=== PATIENT | male | born 1960 | race Caucasian/White ===

== ENCOUNTER → 2020-12-04 | Outpatient (CLI) | payer OTHER ==
--- NOTE | 2020-12-04 18:07 | Diagnostic Imaging Report ---
INDICATION: History of kidney stones. Left flank pain. FINDINGS: KUB shows calcification overlying the lower pole of the left kidney measuring approximately 8 x 5 mm. No calcifications noted along the path of the ureter. There are calcifications bilaterally in the pelvis most likely representing phleboliths, though I could not completely exclude a small distal left ureteral stone near the bladder. There may be a small calcification overlying the upper pole of the right kidney. IMPRESSION: Bilateral nephrolithiasis. Phleboliths in the pelvis though could not completely exclude a small distal left ureteral stone. Dictated by: Dictated on workstation # [id number]
== END ==
LOC: RAD 13:19
PROVIDERS: ATTEND Urology
DX: N20.2 Calculus of kidney with calculus of ureter (principal)
CPT/HCPCS: 74018

== ENCOUNTER 2020-12-06 05:59 | Outpatient (CLI) | payer OTHER ==
[~2020-12-06] VITALS: Ht 175.3 cm; Wt 87.2 kg
[2020-12-07] MEDS ORDERED: DICL20GE TP (09:17)
[2020-12-07] MEDS ORDERED: CETI10TA17 PO (09:17)
[2020-12-07] MEDS ORDERED: ATOR10TA66 PO (09:17)
[2020-12-07] MEDS ORDERED: BUDE180A IH (09:17)
[2020-12-07] MEDS ORDERED: HYPR15DR6 OU (09:17)
[2020-12-07] MEDS ORDERED: MELO15TA39 PO (09:17)
[2020-12-07] MEDS ORDERED: RT-ALBUINH IH (09:17)
[2020-12-07] MEDS ORDERED: MONT10TA32 PO (09:17)
[2020-12-07] MEDS ORDERED: AMLO-251 PO (09:17)
[2020-12-07] MEDS ORDERED: LISI40TA9 PO (09:17)
[2020-12-07] MEDS ORDERED: OMG1KC PO (09:17)
[2020-12-07] MEDS ORDERED: HYDR25TA4 PO (09:17)
[2020-12-07] MEDS ORDERED: TMSL.4C PO (09:17)
== END 2020-12-08 12:11 | disposition home or self-care (01) ==
LOC: PREOP 05:59
PROVIDERS: ATTEND Urology
DX: Z01.818 Encounter for other preprocedural examination (principal)

== ENCOUNTER 2020-12-12 06:50 | Day surgery (SDC) | payer OTHER ==
[2020-12-12] VITALS (11 sets, daily range): BP systolic 116–147; BP diastolic 71–96
[~2020-12-12] VITALS: Ht 175.3 cm; Wt 87.2 kg
[~2020-12-12 06:50] MED LIST: AMLO-251 PO; ATOR10TA66 PO; BUDE180A IH; CETI10TA17 PO; DICL20GE TP; HYDR25TA4 PO; HYPR15DR6 OU; LISI40TA9 PO; MELO15TA39 PO; MONT10TA32 PO; OMG1KC PO; RT-ALBUINH IH; TMSL.4C PO
--- NOTE | 2020-12-12 07:11 | Progress Note-Pre Operative ---
Pre-Operative Progress Note H&P Reviewed The H&P was reviewed, patient examined and no changes noted. Date Seen by Provider: Dec 12, 2020 Time Seen by Provider: 07:11 Date H&P Reviewed: Dec 12, 2020 Time H&P Reviewed: 07:11 Pre-Operative Diagnosis: LT URETERAL AND RENAL STONES EPIFANIO NI MD Dec 12, 2020 07:11
[2020-12-12] MEDS ORDERED: cefTRIAXone 1,000 MG in WATER (STERILE) FOR INJECTION 10 ML IV ONE (07:15)
[2020-12-12] MEDS: LACTATED RINGERS 1,000 ML IV PRN ×2 (07:31→09:40)
--- NOTE | 2020-12-12 07:39 | Diagnostic Imaging Report ---
INDICATION: Preop assessment for lithotripsy. COMPARISON: 12/04/2020. FINDINGS AND IMPRESSION: 1. Stable 10 mm left renal stone. 2. Unchanged right-sided pelvic phleboliths. Dictated by: Dictated on workstation # [id number]
[2020-12-12] MEDS ORDERED: MIDAZOLAM 2 MG/2 ML (VERSED) VIAL IV ONE (07:45)
[2020-12-12] MEDS ORDERED: proPOfol 200 MG/20 ML (DIPRIVAN) VIAL IV ONE (08:10)
[2020-12-12] MEDS ORDERED: ONDANSETRON 4 MG/2 ML (SDV) Z0FRAN ONE (08:10)
[2020-12-12] MEDS ORDERED: LIDOCAINE PF 2% 5 ML (XYLOCAINE) VIAL ONE (08:10)
[2020-12-12] MEDS ORDERED: fentaNYL INJ 100 MCG/2 ML AMP ONE (08:11)
[2020-12-12] MEDS ORDERED: MIDAZOLAM 2 MG/2 ML (VERSED) VIAL ONE (08:23)
[2020-12-12] MEDS ORDERED: ROCURONIUM 10 MG/ML 5 ML SYRINGE IV ONE (09:02)
[2020-12-12] MEDS ORDERED: IOPAMIDOL 61% 30 ML (ISOVUE 300) VIAL URETERAL ONE (09:20)
[2020-12-12] MEDS ORDERED: KETOROLAC 30 MG/ML VIAL ONE (09:43)
[2020-12-12] MEDS ORDERED: FUROSEMIDE 40 MG/4 ML INJ (LASIX) ONE (09:43)
--- NOTE | 2020-12-12 09:45 | Progress Note-Post Operative ---
Post-Operative Progess Note Surgeon (s)/Airport Operations Duty Manager (s) Surgeon EPIFANIO NI MD Airport Operations Duty Manager: NONE Pre-Operative Diagnosis LT URETERAL AND RENAL STONES Post-Operative Diagnosis SAME Procedure & Operative Findings Date of Procedure 12/12/20 Procedure Performed/Findings LT URETEROSCOPY, RETROGRADE UROGRAM, AND LT ESWL Anesthesia Type GENERAL Estimated Blood Loss Estimated blood loss (mL): NONE Specimens/Packing Specimens Removed NONE Packing: NONE EPIFANIO NI MD Dec 12, 2020 09:45
--- NOTE | 2020-12-12 09:47 | Discharge Inst-Urology ---
Discharge Inst-Urology Reconcile Patient Problems Problems Reviewed?: Yes Final Diagnosis LT URETERAL AND RENAL STONES Patient Instructions/Follow Up Plan/Assessment/Instructions Please make appointment to been seen in office Monday 12/25, KUB prior to it. KUB on way home Post eswl instructions Increase oral fluids for 48 hours and then as needed. Diet and Activity as tolerated. If questions or concerns contact your physician Or seek help at emergency department. EPIFANIO NI MD Dec 12, 2020 09:47
[2020-12-12] MEDS ORDERED: NEOSTIGMINE 3 MG/3 ML VIAL ONE (10:02)
[2020-12-12] MEDS ORDERED: GLYCOPYRROLATE 0.2 MG/ML (ROBINUL) 2 ML VIAL ONE (10:02)
[2020-12-12] MEDS ORDERED: SEVOFLURANE (ULTANE) 15 ML INHAL SOLN ONE (10:13)
[2020-12-12] MEDS ORDERED: RT-ALBUTEROL SULF 2.5 MG/3 ML PRE-MIX VIAL ONE (10:21)
[2020-12-12] MEDS ORDERED: RT-ALBUTEROL SULF 2.5 MG/3 ML PRE-MIX VIAL INH ONE (10:30)
[2020-12-12] MEDS ORDERED: ONDANSETRON 4 MG/2 ML (SDV) Z0FRAN IVP PRN (10:30)
[2020-12-12] MEDS ORDERED: morphine INJ 10 MG/ML 1ML (SYR OR VIAL) IVP ONE (10:30)
[2020-12-12] MEDS ORDERED: MEPERIDINE (DEMEROL) INJ 50 MG/ML IVP ONE (10:30)
[2020-12-12] MEDS ORDERED: HYDROmorphone 2 MG/ML VIAL (DILAUDID) IV ONE (10:30)
--- NOTE | 2020-12-12 12:01 | Anesthesia-General Post-Op ---
General Patient Condition Mental Status/LOC: Same as Preop Cardiovascular: Satisfactory Nausea/Vomiting: Absent Respiratory: Satisfactory Pain: Controlled Complications: Absent Post Op Complications Complications None Follow Up Care/Instructions Patient Instructions None needed. Anesthesia/Patient Condition Patient Condition Patient is doing well, no complaints, stable vital signs, no apparent adverse anesthesia problems. No complications reported per nursing. IAN HUFF CRNA Dec 12, 2020 12:01
[2020-12-12] MEDS ORDERED: NITR-65 PO (12:34)
[2020-12-12] MEDS ORDERED: KETO10TA PO (12:34)
--- NOTE | 2020-12-12 12:51 | Diagnostic Imaging Report ---
EXAMINATION: Abdomen 1 view HISTORY: POST OP ESWL COMPARISON: 12/12/2020 FINDINGS: There is a moderate amount of gas and stool throughout the colon. Nonobstructive bowel gas pattern. Minimally decreased size of a 0.8 cm calculus overlying the left kidney. Stable calcifications within the pelvis. The lung bases are clear. The osseous structures are intact. IMPRESSION: Mildly decreased size of a 0.8 cm calculus overlying the left kidney. Dictated by: Dictated on workstation # [id number]
--- NOTE | 2020-12-12 23:14 | OPERATIVE REPORT ---
DATE OF SERVICE: 12/12/2020 PREOPERATIVE DIAGNOSES: Left distal ureteral and left renal stones. POSTOPERATIVE DIAGNOSES: Left distal ureteral and left renal stones. OPERATION PERFORMED: Left ureteroscopy, retrograde urogram and left ESWL. SURGEON: Cullen Ni MD ANESTHESIA: General. COMPLICATIONS: None. DESCRIPTION OF PROCEDURE: Under satisfactory general anesthesia, the patient in lithotomy position, genitalia were prepped and draped in the usual sterile fashion. Cystoscope was introduced under vision. The anterior urethra was normal. Prostate revealed some obstruction with a median bar and bladder neck obstruction. Bladder was entered, revealed trabeculations. The ureteric orifices displaced upward and laterally. No foreign body, bladder tumor or stone visualized. Using the foroblique lens, I dilated the left ureteral orifice intramural portion to accommodate a 6.9-Swedish semi-rigid ureteroscope, went all the way to the mid ureter up and down, did not visualize any stone. I backed up and injected contrast to perform retrograde urogram. There was no filling defect anywhere in the ureter that was looking thin and completely empties after withdrawing the ureteroscope. I removed the ureteroscope, reinserted the cystoscope to empty the bladder, then moved the patient to the ESWL table supine, the left renal stone was localized. Shocks were delivered at kV of 6, a total of 2500 shocks completely fragmented the stone. The patient received 40 mg of Lasix and 30 mg of Toradol IV at the end of the procedure. He tolerated the procedure and anesthesia well and was sent to recovery room in stable condition. Job ID: [id number] DocumentID: [id number] Dictated Date: 12/12/2020 10:06:57 Director Product Management Date: 12/12/2020 18:47:51 Dictated By: CULLEN NI MD [facility]
== END 2020-12-12 13:00 | disposition home or self-care (01) ==
LOC: SDC 06:50
PROVIDERS: ATTEND Urology
DX: N20.2 Calculus of kidney with calculus of ureter (principal); Z11.2 Encounter for screening for other bacterial diseases; E78.5 Hyperlipidemia, unspecified; J45.909 Unspecified asthma, uncomplicated; H91.90 Unspecified hearing loss, unspecified ear; N40.0 Benign prostatic hyperplasia without lower urinary tract symptoms; M19.90 Unspecified osteoarthritis, unspecified site; I10 Essential (primary) hypertension; Z88.5 Allergy status to narcotic agent; Z88.0 Allergy status to penicillin; Z88.8 Allergy status to other drugs, medicaments and biological substances; Z79.899 Other long term (current) drug therapy
CPT/HCPCS: 74018; 76000; 87081

== ENCOUNTER → 2020-12-25 | Outpatient (CLI) | payer OTHER ==
[~2020-12-25] MED LIST changes: +KETO10TA PO; +NITR-65 PO
--- NOTE | 2020-12-25 15:40 | Diagnostic Imaging Report ---
INDICATION: Left renal calculus. Status post ESWL. COMPARISON: 12/12/2020. FINDINGS: Single frontal radiographic view of the abdomen was obtained. Small bowel loops are nondistended. Pelvic phleboliths are identified on the right. Previously described left inferior pole calculus is now only faintly visualized. No other unexpected extraosseous calcifications or radiopaque foreign bodies are seen. Osseous structures show no acute abnormalities. IMPRESSION: 1. Previously described left inferior pole renal calculus is now only faintly visualized. This is likely on the basis of interval ESWL. 2. Nonobstructed small bowel gas pattern. Dictated by: Dictated on workstation # [id number]
== END ==
LOC: RAD 14:53
PROVIDERS: ATTEND Urology
DX: N20.2 Calculus of kidney with calculus of ureter (principal)
CPT/HCPCS: 74018

== ENCOUNTER → 2021-01-08 | Outpatient (CLI) | payer OTHER ==
--- NOTE | 2021-01-08 14:00 | Diagnostic Imaging Report ---
INDICATION: Status post ESWL. COMPARISON: 12/25/2020. FINDINGS: A single frontal radiographic view of the abdomen was obtained. The previously described calculus overlying the inferior pole of the left kidney can no longer be identified. There is suggestion of subtle extraosseous calcifications projecting over the inferior pole of the right kidney which may be on the basis of nephrolithiasis. There is no prior CT available for comparison. No unexpected radiopaque foreign bodies are seen. The small bowel loops are nondistended. There is no large collection of free intraperitoneal air. The osseous structures show no acute abnormalities. IMPRESSION: 1. Interval resolution of the previously described left-sided renal calculus. 2. Probable faint right-sided nonobstructive renal calculi. Dictated by: Dictated on workstation # [id number]
== END ==
LOC: RAD 12:23
PROVIDERS: ATTEND Urology
DX: N20.0 Calculus of kidney (principal)
CPT/HCPCS: 74018